=== PATIENT | female | born 1995 | race African-American/Black ===

== ENCOUNTER 2017-05-26 00:48 | Emergency (ER) | payer OTHER ==
[~2017-05-26] VITALS: Ht 162.6 cm; Wt 113.6 kg
[2017-05-26 00:50] VITALS: TEMP 99.6
[2017-05-26] MEDS ORDERED: ALBUTEROL S0.4 MG/ML PO (00:54)
[2017-05-26] MEDS ORDERED: NAPROSYN 2250 MG/TAB PO (00:54)
[2017-05-26] MEDS ORDERED: RT ADVAIR 128 DISKUS (00:54)
[2017-05-26] MEDS ORDERED: VITAMIN D1000 IU PO (00:54)
[2017-05-26] MEDS ORDERED: B-12 100 MCG (00:54)
[2017-05-26 01:35] LABS: BASO % 0.1 % (0.0-2.0); EOS # 0.1 (0.0-0.7); EOS % 0.9 % (0-4.0); GRAN # 4.3 (1.4-6.5); GRAN % 63.1 % (42.2-75.2); LYMPH # 2.1 (1.2-3.4); LYMPH % 30.3 % (20.0-51.0); MEAN CELL VOLUME 84 fl (80.0-100.0); MEAN CORPUSCULAR HGB CONC 33 g/dl (33.0-37.0); MEAN PLATELET VOLUME 10.4 fl (7.4-10.4); MONO # 0.4 (0.1-0.6); MONO % 5.3 % (1.7-9.3); PLATELET COUNT 243 K/mm3 (130-400); RED BLOOD COUNT 4.21 M/mm3 (4.10-5.30); REDCELL DISTRIBUTION WIDTH-CV 13.1 % (11.5-14.5); WHITE BLOOD COUNT 6.8 K/mm3 (4.8-10.8)
[2017-05-26 01:36] LABS: HEMATOCRIT 35.4 % (37.0-47.0); HEMOGLOBIN 11.5 g/dl (12.5-16.0); MEAN CORPUSCULAR HEMOGLOBIN 27 pg (27.0-31.0)
[2017-05-26 01:48] LABS: ADJUSTED CALCIUM 9.3 mg/dL (8.4-10.2); ALANINE AMINOTRANSFERASE 30 U/L (9-52); ALKALINE PHOSPHATASE 56 U/L (50-136); ANION GAP 11 mmol/L (7-16); BILIRUBIN,TOTAL 0.4 mg/dL (0.0-1.0); BLOOD UREA NITROGEN 14 mg/dL (7-17); CALCIUM 9.3 mg/dL (8.4-10.2); CARBON DIOXIDE 23 mmol/L (22-30); CHLORIDE 105 mmol/L (98-107); CREATININE, serum 0.85 mg/dL (0.52-1.25); GLUCOSE 107 mg/dL (74-106); POTASSIUM 4.2 mmol/L (3.4-5.0); SODIUM 140 mmol/L (137-145); TOTAL PROTEIN 7.6 gm/dL (6.4-8.2)
[2017-05-26 02:02] LABS: C-REACTIVE PROTEIN < 0.5 mg/dL (0.0-0.9)
[2017-05-26 02:23] VITALS: BP 134/91; PULSE 94
[2017-05-27] MEDS ORDERED: PREDNISONE20 MG PO ×2 (15:18→18:06)
[2017-05-27] MEDS ORDERED: ATIVAN 0.50.5 MG/TAB PO (18:06)
== END 2017-05-26 02:23 | disposition home or self-care (01) ==
LOC: COL.ER 00:48
PROVIDERS: Nurse Practitioner
DX: R52 Pain, unspecified (principal); R10.816 Epigastric abdominal tenderness; G89.29 Other chronic pain; R01.1 Cardiac murmur, unspecified; J45.909 Unspecified asthma, uncomplicated; D64.9 Anemia, unspecified

== ENCOUNTER 2017-05-27 15:10 | Emergency (ER) | payer OTHER ==
[~2017-05-27] VITALS: Ht 162.6 cm; Wt 113.6 kg
[~2017-05-27 15:10] MED LIST: ALBUTEROL S0.4 MG/ML PO; B-12 100 MCG; NAPROSYN 2250 MG/TAB PO; RT ADVAIR 128 DISKUS; VITAMIN D1000 IU PO
[2017-05-27 15:13] VITALS: BP 135/83; PULSE 94; TEMP 99.3
[2017-05-27] MEDS ORDERED: PREDNISONE20 MG PO ×2 (15:18→18:06)
[2017-05-27] MEDS ORDERED: ATIVAN 0.50.5 MG/TAB PO (18:06)
== END 2017-05-27 18:13 | disposition home or self-care (01) ==
LOC: COL.ER 15:10
DX: R07.9 Chest pain, unspecified (principal); R07.1 Chest pain on breathing; F41.9 Anxiety disorder, unspecified; J45.909 Unspecified asthma, uncomplicated; R00.2 Palpitations

== ENCOUNTER 2017-09-25 19:24 | Emergency (ER) | payer OTHER ==
[~2017-09-25] VITALS: Ht 162.6 cm; Wt 135.5 kg
[~2017-09-25 19:24] MED LIST changes: +ATIVAN 0.50.5 MG/TAB PO; +PREDNISONE20 MG PO
[2017-09-25 19:27] VITALS: TEMP 99.7
[2017-09-25 20:29] LABS: BASO % 0.2 % (0.0-2.0); EOS % 0.5 % (0-4.0); GRAN # 2.4 (1.4-6.5); GRAN % 59.9 % (42.2-75.2); LYMPH # 1.3 (1.2-3.4); LYMPH % 31.5 % (20.0-51.0); MEAN CELL VOLUME 84 fl (80.0-100.0); MEAN CORPUSCULAR HEMOGLOBIN 27 pg (27.0-31.0); MEAN CORPUSCULAR HGB CONC 33 g/dl (33.0-37.0); MEAN PLATELET VOLUME 10.4 fl (7.4-10.4); MONO # 0.3 (0.1-0.6); MONO % 7.7 % (1.7-9.3); PLATELET COUNT 258 K/mm3 (130-400)
[2017-09-25 20:30] LABS: HEMATOCRIT 36.9 % (37.0-47.0)
[2017-09-25 20:37] LABS: ADJUSTED CALCIUM 9.1 mg/dL (8.4-10.2); ALBUMIN 4.2 gm/dL (3.5-5.0); BILIRUBIN,TOTAL 1.2 mg/dL (0.0-1.0); CALCIUM 9.3 mg/dL (8.4-10.2); CREATININE, serum 0.9 mg/dL (0.52-1.25); POTASSIUM 3.5 mmol/L (3.4-5.0); TOTAL PROTEIN 7.8 gm/dL (6.4-8.2)
[2017-09-25 20:48] LABS: INFLUENZA A NEGATIVE; INFLUENZA B NEGATIVE
[2017-09-25] MEDS ORDERED: ZOFRAN ODT4 MG PO (22:08)
[2017-09-25] MEDS ORDERED: NORCO 325 MG-51 TAB PO (22:08)
[2017-09-25 22:23] VITALS: BP 119/80; PULSE 100
== END 2017-09-25 22:23 | disposition home or self-care (01) ==
LOC: COL.ER 19:24
PROVIDERS: Emergency Medicine
DX: B34.9 Viral infection, unspecified (principal); J45.909 Unspecified asthma, uncomplicated
CPT/HCPCS: J2270; J2405; J7030

== ENCOUNTER 2018-04-11 09:46 | Emergency (ER) | payer OTHER ==
[~2018-04-11] VITALS: Ht 162.6 cm; Wt 135.0 kg
[~2018-04-11 09:46] MED LIST changes: +NORCO 325 MG-51 TAB PO; +ZOFRAN ODT4 MG PO
[2018-04-11 09:53] VITALS: BP 134/77; PULSE 80; TEMP 99
[2018-04-11] MEDS ORDERED: FLEXERIL 1010 MG/TAB PO (10:15)
[2018-04-11] MEDS ORDERED: ULTRAM 50MG TAB50 MG PO (10:15)
[2018-04-11] MEDS ORDERED: HCTZ 25MG TAB25 MG PO (10:16)
[2018-04-11] MEDS ORDERED: NAPROSYN500 MG PO (10:17)
[2018-04-11] MEDS ORDERED: NORCO 325 MG-51 TAB PO (11:31)
[2018-04-11] MEDS ORDERED: ZOFRAN ODT4 MG PO (11:31)
== END 2018-04-11 11:59 | disposition home or self-care (01) ==
LOC: COL.ER 09:46
DX: M79.7 Fibromyalgia (principal)
CPT/HCPCS: J1885